=== PATIENT | male | born 1965 | race Caucasian/White ===

== ENCOUNTER 2019-12-11 07:56 | Inpatient (IN) | payer BC ==
[~2019-12-11] VITALS: Ht 172.7 cm; Wt 91.3 kg
[2019-12-11] MEDS ORDERED: HYDROmorphone HCL 2 MG/ML VL IV ONE ×2 (08:15→12:30)
[2019-12-11] MEDS ORDERED: ONDANSETRON HCL 4 MG/2 ML VIAL IV ONE (08:15)
[2019-12-11 08:41] LABS: Basophils # (auto) 0.1 10 ^3/uL (0-0.2); Basophils % (auto) 0.8 % (0.0-2.0); Eosinophils # (auto) 0.1 10 ^3/uL (0-0.8); Eosinophils % (auto) 1.3 % (0.0-7.0); Hematocrit 44.7 % (41.0-53.0); Hemoglobin 15.2 g/dL (13.5-17.5); Lymphocytes # (auto) 2.4 10 ^3/uL (0.4-5.4); Lymphocytes % (auto) 31.3 % (10.0-50.0); Mean Corpuscular Hemoglobin 29.6 pg (28.0-32.0); Mean Corpuscular Hgb Conc. 34.1 g/dL (32.0-36.0); Mean Corpuscular Volume 86.8 fL (80.0-100.0); Monocytes # (auto) 0.9 10 ^3/uL (0-1.3); Monocytes % (auto) 12.2 % (0.0-12.0); Neutrophils # (auto) 4.2 10 ^3/uL (1.6-8.6); Neutrophils % (auto) 54.4 % (37.0-80.0); Nucleated Red Blood Cells % 0.1 %; Platelet Count (auto) 216 10^3/uL (140-450); Red Blood Cells 5.15 10^6/uL (4.5-5.90); Red Cell Distribution Width 12.8 % (11.8-14.3); White Blood Cell 7.6 10^3/uL (4.4-10.8)
[2019-12-11 08:59] LABS: Albumin 3.4 g/dL (3.4-5.0); Calcium 8.7 mg/dL (8.5-10.1); Potassium 3.9 mmol/L (3.5-5.1)
[2019-12-11 09:02] LABS: BUN/Creatinine Ratio 14.1; Bilirubin, Total 0.4 mg/dL (0.2-1.0); Total Protein 7.4 g/dL (6.4-8.2)
[2019-12-11] MEDS ORDERED: DOCUSATE SOD 100 MG CAP PO PRN (12:15)
[2019-12-11] MEDS ORDERED: ACETAMINOPHEN 500 MG TAB PO PRN (12:15)
[2019-12-11] MEDS ORDERED: HYDROcodone-ACET 5/325MG TAB PO PRN (12:15)
[2019-12-11] MEDS ORDERED: LORazepam 2MG/ML-1ML VIAL IV ONE (12:30)
[2019-12-11] MEDS: ONDANSETRON HCL 4 MG/2 ML VIAL IV PRN ×2 (16:00→22:25)
[2019-12-11] MEDS: HYDROmorphone HCL 2 MG/ML VL IV PRN ×3 (16:00→22:25)
--- NOTE | 2019-12-11 17:13 | NUR ---
MS admit from ER KARTIK ESPINOSA admitted to tele/MS after SBAR received. Patient oriented to ZAIRA RAMOS RN primary RN, MED-SURG unit, room 272, bed A, and unit policies regarding patient care and visiting hours. Patient weighed by bedscale and encouraged to call if they need something. All questions and concerns addressed, patient verbalized understanding.
--- NOTE | 2019-12-11 19:13 | NUR ---
CARE ENDORSED TO BRITTANY BETANCOURT.
[2019-12-11 19:14] VITALS: BP 103/60
--- NOTE | 2019-12-11 19:30 | NUR ---
Opening Shift Note Received report from clare Borges RN. Assumed care of patient, awake and alert. No S/S of distress/SOB or pain. Patient states he only has pain with movements. Insructed on POC and to callfor assist PRN, will continue to monitor for changes Q1hr and PRN.
[2019-12-11 20:00] VITALS: BP 137/78
[2019-12-11 22:14] VITALS: BP 137/78
--- NOTE | 2019-12-12 05:02 | NUR ---
Patient is c/o pain to back of 8/10, pain medication given as ordered. Will monitor.
[2019-12-12] MEDS: ONDANSETRON HCL 4 MG/2 ML VIAL IV PRN ×2 (05:04→20:50)
[2019-12-12] MEDS: HYDROmorphone HCL 2 MG/ML VL IV PRN ×5 (05:04→20:49)
[2019-12-12 05:30] VITALS: BP 120/75
[2019-12-12 09:00] VITALS: BP 112/67
[2019-12-12] MEDS: FAMOTIDINE 20 MG TAB PO SCH (09:10)
--- NOTE | 2019-12-12 11:46 | NUR ---
OPENING SHIFT NOTE: PATIENT RESTING IN BED, RESPIRATIONS EVEN AND UNLABORED. REPORTS PAIN 6/10 IN THE LOWER POSTERIOR BACK, PRESSURE AND ACUTE. WILL MEDICATE ORDERED. UPDATED ON PLAN OF CARE, FALL PRECAUTIONS IN PLACE, CALL LIGHT WITHIN REACH, WILL CONTINUE TO MONITOR.
--- NOTE | 2019-12-12 12:41 | NUR ---
CARE ENDORSED TO BRANDI BETANCOURT
--- NOTE | 2019-12-12 12:45 | NUR ---
REPORT REC'D/CARE ASSUMED PT A/O X4. C/O 07/19 BACK PAIN. MOVES ALL EXTREMITIES AND IS ABLE TO BEAR FULL WT AND TOOK STEPS TO BR WITH SEVERE PAIN.
[2019-12-12 13:00] VITALS: BP 128/78
[2019-12-12 17:00] VITALS: BP 125/68
--- NOTE | 2019-12-12 19:30 | NUR ---
Opening Shift Note Assumed care of patient, awake and alert. No S/S of distress/SOB. Complained of chronic back pain. Instructed on POC and to call for assist PRN, patient and at bedside verbalized understanding. Call light within reach, will continue to monitor for changes Q1hr and PRN.
[2019-12-12 21:53] VITALS: BP 118/59
[2019-12-13 04:43] VITALS: BP 140/73
[2019-12-13] MEDS: HYDROmorphone HCL 2 MG/ML VL IV PRN ×4 (04:52→17:26)
--- NOTE | 2019-12-13 08:01 | NUR ---
OPENING SHIFT NOTE: PATIENT RESTING IN BED, RESPIRATIONS EVEN AND UNLABORED. REPORTS PAIN 6/10 IN THE LOWER POSTERIOR BACK, PRESSURE AND ACUTE. PATIENT REPORTS BEING ABLE TO GET UP AND WALK YESTERDAY AFTER PAIN MEDICINE "KICKED IN." WILL MEDICATE ORDERED. UPDATED ON PLAN OF CARE, FALL PRECAUTIONS IN PLACE, CALL LIGHT WITHIN REACH, WILL CONTINUE TO MONITOR.
[2019-12-13 09:00] VITALS: BP 117/73
--- NOTE | 2019-12-13 09:08 | NUR ---
MD GUERRERO ROUNDING: PATIENT UPDATED ON PLAN OF CARE-WHEN DOCTOR ROBLES ROUNDS AND WRITES PRESCRIPTION FOR PAIN MEDICATION IF NEEDED, PATIENT OKAY TO GO HOME. MD ARBOLEDA MADE AWARE OF CONSULT PER DR. GUERRERO.
[2019-12-13] MEDS: FAMOTIDINE 20 MG TAB PO SCH (10:00)
--- NOTE | 2019-12-13 10:06 | NUR ---
PEPCID: PATIENT REFUSING PEPCID, STATES "I DON'T NEED THAT." EDUCATED PATIENT AND MED NOT GIVEN.
[2019-12-13 13:00] VITALS: BP 133/78
[2019-12-13 16:30] VITALS: BP 140/72
--- NOTE | 2019-12-13 17:33 | NUR ---
PATIENT CONCERNS: PATIENT EXPRESSED CONCERNS WITH PAIN MGMT MD ARBOLEDA NOT ROUNDING TO SEE PATIENT. PATIENT HAS PRIOR ENGAGEMENTS FOR TOMORROW /. WANTS TO LEAVE AMA. MD GUERRERO MADE AWARE, CALLS MADE TO ROBLES. PENDING CALL BACK.
--- NOTE | 2019-12-13 17:47 | NUR ---
CALL BACK FROM ROBLES GUERRERO HE IS IN A SURGERY, AND IS STILL GOING TO SEE THE PATIENT. PATIENT INFORMED AND WILLING TO WAIT.
--- NOTE | 2019-12-13 18:56 | NUR ---
MD ARBOLEDA NOT IN YET, WILL ENDORSE CARE/DISCHARGE TO NOC RN.
--- NOTE | 2019-12-13 19:11 | NUR ---
CARE ENDORSED TO JOSE BETANCOURT.
--- NOTE | 2019-12-13 19:30 | NUR ---
Dr. Pierre at bedside
--- NOTE | 2019-12-13 19:55 | NUR ---
Discharge instructions given as ordered. Encourage to follow up with PMD as instructed. All questions and concerns addressed. Patient verbalized understanding. Medication reconciliation form completed and copy given to patient. IV removed by dayshift RN. Patient taken to vehicle via wheelchair with all personal belongings, accompanied by staff and . No distress noted at time of departure.
== END 2019-12-13 19:55 | disposition home or self-care (01) | DRG 552 ==
LOC: ER 07:56 → EDBD 07:56 → OVERFLOW 07:57 → WEST WING 17:20
PROVIDERS: ADMIT Nurse Practitioner Acute Care; ATTEND Internal Medicine Nephrology
DX: M48.061 Spinal stenosis, lumbar region without neurogenic claudication (principal); M54.5 Low back pain; M19.90 Unspecified osteoarthritis, unspecified site; G89.29 Other chronic pain; Z96.653 Presence of artificial knee joint, bilateral; E66.9 Obesity, unspecified; M77.9 Enthesopathy, unspecified; M47.816 Spondylosis without myelopathy or radiculopathy, lumbar region; Z87.891 Personal history of nicotine dependence
CPT/HCPCS: 36415; 72148; 80053; 85025; 96374; 96375; 96376; G0378; J2405